=== PATIENT | male | born 1930 | race Caucasian/White ===

== ENCOUNTER → 2016-02-29 | Outpatient (CLI) | payer OTHER ==
[~2016-02-29] MED LIST: AMLODIPINE BESY10 MG PO; ASPIR 8181 M1 PO; CENTRUM SILVER1 EAC2 PO; COREG25 MG PO; COUMADIN 5 MG TA5 M1 PO; LISINOPRIL10 MG PO; VITAMIN D1000 UNI1 PO
--- NOTE | ~2016-02-29 | 2DMMODE ---
[facility] [address] 2 D/M-MODE ECHOCARDIOGRAM Name: ALKASARINA Michaud Room #: REG [facility]#: [id number] Admission: 02/29/16 Attend Phys: Bebeto Ennis Discharge: Date of : 28 Date of Service: 02/29/16 1125 Report #: [id number] THIS REPORT FOR: //name// Transthoracic Echocardiography Ordering physician: Bebeto Ennis Referring physician: Bebeto Ennis Recycling Technician: Stephani Ortiz Indications/History: Pre Op new pacemaker. BP: 145 / HR: 67bpm Height: 69in Weight: 169.6lb 80 Study data: M-mode, complete 2D, complete spectral Doppler, and color Doppler. Location: Echo laboratory. Routine. Image quality was adequate. 2D measurements Normal Normal LVID ED 42.7mm 36-57 IVS ED 12.1mm 6-11 LVID ES 26.4mm 23-40 LVPW ED 11.3mm 6-11 LA volume 41ml/m2 16-28 AoRoot diam 34.4mm 21-37 index ED LVOT diameter 22mm 18-23 Findings: Left ventricle: The cavity size was normal. Wall thickness was increased in a pattern of mild LVH. Systolic function was normal. The estimated ejection fraction was in the range of 50% to 55%. Wall motion was normal. Right ventricle: The cavity size was normal. Systolic function was normal. Ventricular septum: Paradoxical motion of septum consistent with a paced rhythm.. Right atrium: The atrium was normal in size. Pacer wire or catheter noted in right atrium. Left atrium: The atrium was dilated. Volume index: 41ml/m2 (S). [facility] [address] 2 D/M-MODE ECHOCARDIOGRAM Name: RUCKERSARINA Room #: REG M.[facility]#: [id number] Admission: 02/29/16 Attend Phys: Bebeto [facility] Discharge: Date of : 28 Date of Service: 02/29/16 1125 Report #: [id number] Aortic valve: Moderately thickened leaflets. Doppler: There was mild to moderate stenosis. Mild regurgitation. Peak velocity: 285.1cm/s (S). Mean gradient: 18.6mm Hg (S). Peak gradient: 32.5mm Hg (S). Mitral valve: Mildly calcified annulus. Mildly thickened leaflets . Doppler: There was no evidence for stenosis. Mild to moderate regurgitation. Peak E-wave velocity: 112.8cm/s. Peak gradient: 5.1mm Hg (D). Tricuspid valve: Structurally normal valve. Doppler: There was no evidence for stenosis. Mild-moderate regurgitation. Regurgitant peak velocity: 248cm/s. Peak RV-RA gradient: 25mm Hg (S). Pulmonic valve: Structurally normal valve. Doppler: There was no evidence for stenosis. Mild regurgitation. Pericardium: There was no pericardial effusion. Aorta: Aortic root: The aortic root was normal in size. Pulmonary artery: Systolic pressure was estimated to be 30mm Hg. Diastolic function: The study is not technically sufficient to allow evaluation of LV diastolic function. Systemic veins: Inferior vena cava: The vessel was normal in size; the respirophasic diameter changes were in the normal range (= 50%). Conclusions 1. Left ventricle: The cavity size was normal. Wall thickness was increased in a pattern of mild LVH. Systolic function was normal. The estimated ejection fraction was in the range of 50% to 55%. 2. Ventricular septum: Paradoxical motion of septum consistent with a paced rhythm.. 3. Right atrium: Pacer wire or catheter noted in right atrium. 4. Left atrium: The atrium was dilated. 5. Aortic valve: Moderately thickened leaflets. There was mild to moderate stenosis. Mild regurgitation. 6. Mitral valve: Mildly calcified annulus. Mildly thickened leaflets . Mild to moderate regurgitation. 7. Pulmonic valve: Mild regurgitation. 8. Tricuspid valve: Structurally normal valve. Mild-moderate regurgitation. [facility] [address] [place] [address] 2 D/M-MODE ECHOCARDIOGRAM Name: ALKASARINA Room #: [facility]#: [id number] Admission: 02/29/16 Attend Phys: Bebeto Ennis Discharge: Date of : 28 Date of Service: 02/29/16 1125 Report #: [id number] 9. Pulmonary arteries: Systolic pressure was estimated to be 30mm Hg. <ELECTRONICALLY SIGNED> By: Erik Zarate MD 02/29/16 1232 1125 31 Erik Zarate MD /cadence
== END ==
LOC: CV
DX: Z01.818 Encounter for other preprocedural examination (principal); Z98.61 Coronary angioplasty status

== ENCOUNTER → 2016-03-02 | Outpatient (CLI) | payer OTHER ==
[~2016-03-02] VITALS: Ht 175.3 cm; Wt 77.1 kg
--- NOTE | ~2016-03-02 | P ---
[facility] [place] [address] PROCEDURE REPORT Name: SARINA RUCKER Room #: REG [facility]#: [id number] Admission: 03/02/16 Attend Phys: Bebeto Ennis MD Discharge: Date of : 28 Report #: [id number] THIS REPORT FOR: //name// CC: ZACH physician/PCP Bebeto Ennis DATE OF SERVICE: 03/02/2016 PREOPERATIVE DIAGNOSIS: Pacemaker elective replacement indicator. POSTOPERATIVE DIAGNOSIS: Pacemaker elective replacement indicator. HISTORY: The patient is an 85-year-old whose pacemaker is at [facility] and he is here for generator exchange. ANESTHESIA: The patient Under MAC anesthesia with no anesthesia related complications. DESCRIPTION OF PROCEDURE: The patient underwent informed consent. We discussed the details of the procedure including the risks, which include but not limited to bleeding, infection, vascular damage, cardiac perforation and pneumothorax. He understood these risks is willing to proceed. Essentially, he was brought to the EP laboratory in fasting and sedated state, prepped and draped in a sterile fashion. He received antibiotics prior to initiation of the procedure. Next, I injected lidocaine at the prior incision site. Incision was made and the chronic pocket was entered. The old device was disconnected. The new device was connected. The pocket was irrigated with vancomycin and then, the pocket was closed in 3 layers using 2-0 for the deep layer, 3-0 for the mid layer, 4-0 for the subcuticular layer. Surgical glue was placed in the outer skin layer. There were no complications and no significant bleeding. The explanted device was a [employer] pacemaker model #5816, serial #[id number] implanted originally on 12/28/2006. Newly implanted pacemaker was a [employer] model # VO8198, serial #[id number]. Atrial lead was a model #1688TC, 46 cm, serial [id number]. This demonstrated a P-wave of 2.4 millivolts, pacing impedance 390 ohms, pacing threshold 0.75 volts at 0.4 milliseconds. RV lead was a [employer] model #1649T, 52 cm, serial #[id number] with R-wave of 4.2 millivolts, pacing threshold 1 volt at 0.4 milliseconds, a pacing impedance of 460 ohms. The device is programmed to DDD 60-130 mode. CONCLUSIONS: [facility] [address] [place] [address] PROCEDURE REPORT Name: SARINA RUCKER [facility] [id number] Admission: 03/02/16 Attend Phys: Bebeto Ennis MD Discharge: Date of : 28 Report #: [id number] 1. Successful dual-chamber pacemaker generator exchange. 2. Satisfactory atrial and ventricular pacing thresholds. <ELECTRONICALLY SIGNED> By: Bebeto Ennis MD 03/24/16 1225 1444 1755 MD adelfo Khalil
[2016-03-02 07:29] VITALS: BP 161/70
[2016-03-02 07:42] LABS: HEMATOCRIT 30.2 % (42.0-52.0); HEMOGLOBIN 9.9 gm/dL (14.0-18.0); MCH 28.3 pg (26.0-34.0); MCV 85.9 fL (80.0-100.0); PLATELET COUNT 344 thou/uL (150-400); RBC 3.51 mil/uL (4.50-6.00); WBC 7.6 thou/uL (4.0-11.0)
[2016-03-02 07:45] LABS: MANUAL DIFF YES
[2016-03-02 07:55] LABS: CALCIUM 8.8 mg/dL (8.5-10.1); CREATININE 1.5 mg/dL (0.6-1.3); POTASSIUM 3.9 mmol/L (3.5-5.1)
[2016-03-02 07:57] LABS: APTT 36.3 Seconds (24.5-32.8); INR 1.3; PROTIME 13.9 Seconds (9.3-11.4)
[2016-03-02 08:03] LABS: ALBUMIN 2.4 g/dL (3.4-5.0); TOTAL BILIRUBIN 0.8 mg/dL (<0.1-1.0); TOTAL PROTEIN 6.5 g/dL (6.4-8.2)
[2016-03-02 08:31] LABS: ABSOLUTE NEUTROPHILS 5.9 thou/uL (1.4-8.2); TOTAL CELL COUNT 100
[2016-03-02 08:32] LABS: ANISOCYTOSIS 1+
== END ==
LOC: CATH 06:45
PROVIDERS: Internal Medicine Cardiovascular Disease
DX: M79.89 Other specified soft tissue disorders (principal)
CPT/HCPCS: 62110; 62900; 70005